=== PATIENT | female | born 1970 | race Caucasian/White ===

== ENCOUNTER → 2016-12-13 | Outpatient (CLI) | payer OTHER ==
--- NOTE | 2016-12-14 12:45 | MAMMOGRAPHY REPORT ---
BILATERAL DIGITAL SCREENING MAMMOGRAM TOMOSYNTHESIS WITH CAD: 12/13/2016 CLINICAL HISTORY: Routine screening examination. TECHNIQUE: Breast tomosynthesis in addition to standard 2D mammography was performed. Current study was also evaluated with a Computer Aided Detection (CAD) system. COMPARISON: Comparison is made to exams dated: 12/05/2014 mammogram, 03/30/2011 mammogram, 09/18/2010 u ltrasound, 09/18/2010 mammogram, and 09/16/2010 mammogram - [facility]. BREAST COMPOSITION: There are scattered areas of fibroglandular density in both breasts. FINDINGS: There are scattered benign-appearing microcalcifications and grouped rim calcifications. N o suspicious mass, architectural distortion or cluster of suspicious microcalcifications is seen. IMPRESSION: ACR BI-RADS CATEGORY 1: NEGATIVE There is no mammographic evidence of malignancy. A 1 year screening mammogram is recommended. The pa tient will receive written notification of the results. Approximately 10% of breast cancers are not detected with mammography. A negative mammographic report should not delay biopsy if a clinically suggestive mass is present. Maria G Molina M.D. ay/:12/13/2016 22:12:17 Senior Medical Writer: Mdady ROTHMAN(Adrianna)([place]), [facility] letter sent: Normal 1/2 BI-RADS Code: ACR BI-RADS Category 1: Negative
== END | disposition home or self-care (01) ==
LOC: C.MAMM 07:17
DX: Z12.31 Encounter for screening mammogram for malignant neoplasm of breast (principal)

== ENCOUNTER → 2018-02-07 | Outpatient (CLI) | payer OTHER ==
--- NOTE | 2018-02-07 08:22 | DIAGNOSTIC IMAGING REPORT ---
(BARIUM SWALLOW) ESOPHAGUS CLINICAL HISTORY: R93.[address] scan, nausea, vomiting, difficulty swallowing. Reflux. Weight loss. Enlarged esophagus on outside CT scan. COMPARISON STUDY: None FLUOROSCOPY TIME: 2.2 minutes. NUMBER OF FLUOROSCOPIC IMAGES: 16 FINDINGS: The patient swallowed barium. There is esophageal dilatation. A gastric lap band was visualized. There is marked narrowing of the gastric lumen at the level of the lap band with minimal barium passing through the lap band. There is dilatation of the esophagus. There is dysmotility and reflux. IMPRESSION: Marked narrowing of the gastric lumen at the level of the gastric lap band. This results in esophageal dilatation. Electronically signed by: Gio Martinez M.D. 02/07/2018 8:21 AM Dictated Date/Time: 02/07/2018 8:18 AM
== END | disposition home or self-care (01) ==
LOC: C.RAD 07:25
PROVIDERS: ATTEND Physician Assistant
DX: R93.3 Abnormal findings on diagnostic imaging of other parts of digestive tract (principal)